=== PATIENT | female | born 1990 | race Caucasian/White ===

== ENCOUNTER 2020-05-17 06:25 | Inpatient (IN) | payer OTHER, SELFPAY ==
[2020-05-17] VITALS (103 sets, daily range): BP systolic 74–161; BP diastolic 40–142; PULSE 60–184; RESP 18; TEMP 36.6–37.3; O2SAT 96–100; BMI 35.6
--- NOTE | 2020-05-17 06:42 | WPDANESEPP ---
Anes - Eval Pre Procedure Procedure: Labor epidural Date/Time: 05/17/20 06:42 Surgeon: Rae Preop Diagnosis: pain during labor Pre Op Diagnosis: Induction of Labor Patient Data Age: 30 Gender: F Height: Weight: Allergies Allergy/AdvReac Type Severity Reaction Status Date / Time sumatriptan [From Imitrex] Allergy Other Verified 04/18/20 14:28 Home Medications Medication Instructions Recorded Confirmed Type prenat.vits,valentina,[id number] 1 tablet PO DAILY 04/18/20 04/18/20 History [ #2] Patient hx anesthesia problems: none Family hx anesthesia problems: none PMFSH Family History Family History (Updated 04/18/20 @ 14:35 by Colette Queen RN) Mother Asthma Bipolar 1 disorder Borderline personality disorder PTSD (post-traumatic stress disorder) Anxiety Depression Degenerative disc disease Grandparent Diabetes mellitus Asthma Neuropathy Father Asthma Depression Anxiety Borderline personality disorder Bipolar 1 disorder Social History Social History Substance use: former Spiritual care concerns: No Exam Day of Procedure 05/17/20 06:42
[2020-05-17 07:09] LABS: Basophils Absolute Auto 0.1 K/mm3 (0.0-0.1); Basophils Percent Auto 0.7 % (0.2-1.2); Eosinophils Absolute Auto 0.2 K/mm3 (0-0.3); Eosinophils Percent Auto 1.3 % (0-4.4); Hematocrit 38.7 % (37.0-47.0); Hemoglobin 12.9 g/dL (12.0-15.0); Immature Granulocyte Absolute 1.03 K/mm3 (0.00-0.031); Immature Granulocyte Percent A 6.3 % (0-0.5); Lymphocytes Absolute Auto 3.65 K/mm3 (0.9-3.2); Lymphocytes Percent Auto 22.2 % (18.3-44.2); Mean Corpuscular HGB Conc 33.3 g/dl (32-36); Mean Corpuscular Hemoglobin 31.5 pg (26-34); Mean Corpuscular Volume 94.4 fl (80-100); Mean Platelet Volume 12.8 fl (7.4-10.4); Monocytes Absolute Auto 1.6 K/mm3 (0.1-0.6); Monocytes Percent Auto 9.9 % (2.6-8.5); Neutrophils Absolute Auto 9.8 K/mm3 (1.3-6.7); Neutrophils Percent Auto 59.6 % (45.5-73.1); Platelet Count Result 135 k/mm3 (150-375); Red Cell Distribution Width 14.3 % (11.5-14.5); White Blood Count 16.4 K/mm3 (4.5-10.0)
[2020-05-17] MEDS: OXYTOCIN 30 UNITS/NS 500 ML 30 UNITS/500 ML BAG IV CONT (07:09)
[2020-05-17] MEDS: LACTATED RINGERS 1,000 ML 125 ML IV CONT ×2 (07:10→09:22)
--- NOTE | 2020-05-17 07:31 | LDADM ---
This patient, Chelle Shah, was admitted to Labor/Delivery/Recovery 107 on 05/17/20 at 06:25. Plans for labor, pain management and were discussed with patient. Patient/family oriented to hospital policies and general routines including ID bracelet, bed and alarms, visiting hours, pain management, procedures, bathroom and other care routines, personal items, smoking policy, room service/diet and guest tray routines, security routines, and visiting hours. Patient/Family are encouraged to report perceived risks to care and to ask questions if they do not understand what they are told or what they should do. See OBIX for further documentation.
--- NOTE | 2020-05-17 08:46 | WPDHPUPDATE1 ---
History and Physical Update Update Date/Time: 05/17/20 08:46AROM - Clear /-2 reassuring status History and Physical has been reviewed, including an updated exam of the patient. There are NO changes in the patient's condition. Risks, benefits, and alternatives have been discussed and questions answered. Patient agrees to proceed with procedure.
[2020-05-17] MEDS: ONDANSETRON INJ 4 MG/2 ML VIAL IV PUSH (10:41)
--- NOTE | 2020-05-17 13:21 | P.PCNOB_ITS ---
OB - Delivery Note Procedure Delivery date: 05/17/20 Intrapartal events: None Induction method: per pitocin protocol Delivery monitor: external FHT and external uterine Route of delivery: Episiotomy description: None Laceration Description: None Estimated blood loss (mL): 194 Anesthesia type: Epidural [place] Baby Date of : 05/17/20 Time of : 13:09 Weeks of gestation at delivery: 41 Infant gender: Male Weight (pounds): 7 Weight (ounces): 12 presentation: vertex position: Right Occiput Anterior Placenta delivery description: Spontaneous cord vessel description: Nuchal Cord and Reduced score one minute: 8 score five minutes: 9 Narrative: Delivery per Pinky ULRICH. Cord gasses collected and handed off to staff.
--- NOTE | 2020-05-17 13:30 | PC.NURSE ---
Attempt to assist with feeding 2x this day. Mother completed feeding independently. Mother is supplementing by choice and states she has some difficulties getting to latch and maintain latch. Discussed calling out for assist for observation of correct latch and techniques to keep awake while feeding and to assist with maintaining latch. Discussed stimulation and milk supply. Offered to assist mother with pumping to stimulate milk supply. Mother states she is unsure if she wishes to pump, she may continue to breast and bottle feed. Mother states she will call out if she wishes to pump or for assist with latching.
[2020-05-17] MEDS: OXYTOCIN 30 UNITS/NS 500 ML 30 UNITS/500 ML BAG 125 UNITS IV CONT (13:45)
[2020-05-17] MEDS: BENZOCAINE 20% AER SPR (*SP) 56 GM CAN 1 SPRAY TOPICAL (15:51)
[2020-05-17] MEDS: WITCH HAZEL 40 PADS 1 PAD TOPICAL (15:51)
--- NOTE | 2020-05-17 16:10 | PC.NURSE ---
PT arrived on unit via wheelchair accompanied by significant other and infant and taken to room 283. PT oriented to room 283 and surroundgin area. PT introductions made and plan of care discussed per post , pain management, breast feeding, daily care activities. Welcome packet reviewed and discussed. PT verbalized understanding of such care.
[2020-05-18 05:29] LABS: Hematocrit 33.9 % (37.0-47.0); Hemoglobin 11.5 g/dL (12.0-15.0)
[2020-05-18 07:55] VITALS: BP 130/68; PULSE 80; RESP 16; TEMP 37.1; O2SAT 100
--- NOTE | 2020-05-18 07:58 | WPDANLDPN2 ---
Anes-Prog Note L&D Date/Time: 05/18/20 07:58 Comfortable throughout: labor and delivery Neuraxial method: epidural Epidural/Spinal procedure site: clean & non-tender Neuro status: Neuro function grossly intact. Cardiovascular status: normal Respiratory status: normal Airway patency: baseline Mental status: baseline Post-Op hydration status: normal Vital Signs: Last Vital Signs Temp 37.3 C 05/17/20 20:00 Pulse 87 05/17/20 20:00 Resp 18 05/17/20 20:00 BP 106/52 L 05/17/20 20:00 Pulse Ox 98 05/17/20 20:00 Pain score (VAS): 0 I/O: Intake & Output 05/17/20 05/17/20 05/18/20 15:59 23:59 07:59 Intake Total 1000 1200 Output Total 147 Balance 1000 1053 Post-procedural complaints: none Patient feedback: Patient satisfied with anesthetic care.
--- NOTE | 2020-05-18 08:00 | PC.NURSE ---
PT introductions made and plan of care discussed per post , pain management, breast feeding, daily care activities. PT verbalized understanding of such care.
--- NOTE | 2020-05-18 08:02 | PM.OBPNVD ---
OB - PN: Subj Subjective Date/time seen: 05/18/20 08:02 Patient comments: no complaints baby status: doing well OB - PN: Obj Data Labs CBC & Chem 7: 05/18/20 04:42 Labs: Laboratory Results - last 24 hr 05/17/20 05/18/20 07:02 04:42 Hgb 11.5 L Hct 33.9 L Blood Type O Positive Antibody Screen Negative OB - PN A/P Plan day: 2 Plan: routine care and discharge home (Repeat platelet and if stable may be discharged to home.) Time Spent With Patient Time: Total time spent is greater than 50% in coordination of care (as documented) at patient's floor/unit and/or counseling patient: Time with patient: less than 15 minutes Review of Systems Review of Systems: All systems reviewed & are unremarkable except as noted in HPI and below Exam Narrative: Exam Narrative: Fundus firm and vaginal flow controlled. No lower ext redness, warmth, or edema. Negative homans. Denies h/a, v/d or e/p. Reflexes normal. Const: General: comfortable Chest: Breast/axilla inspection: normal inspection of the breasts Resp: Effort & Inspection: normal respiratory effort Cardio: Rate: regular rate GI: GI Palp: Yes Soft to palpation Psych: Appearance: grossly normal Affect: normal affect Attitude: cooperative Thought content: Yes Normal thought content present Judgement: Good judgement present (Psych)
[2020-05-18 09:49] LABS: Rapid Plasma Reagin Non-Reactive (NonReactive)
[2020-05-18 09:59] LABS: Immature Platelet Fraction Pct 24.5 % (0.9-11.2); Mean Platelet Volume 13.3 fl (7.4-10.4); Platelet Count Result 150 k/mm3 (150-375)
[2020-05-18 10:30] VITALS: PULSE 80; RESP 16; O2SAT 100
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
[2020-05-18] MEDS: LANOLIN (LANSINOH) 7.5 GM CREAM 1 APPLIC TOPICAL (10:45)
[2020-05-18] MEDS: MULTIVIT/MIN/PREN/FOL AC/IRON TABLET 1 TAB PO (10:45)
[2020-05-18] MEDS: DOCUSATE SODIUM 100 MG CAPSULE PO ×2 (10:45→18:25)
[2020-05-18] MEDS: IBUPROFEN 600 MG TABLET PO ×2 (10:45→15:10)
[2020-05-18] MEDS: ACETAMINOPHEN 325 MG TABLET 650 MG PO (10:45)
--- NOTE | 2020-05-18 13:00 | PC.NURSE ---
Consulted with patient,mother reports she is able to latch infant independently with slight tenderness. Reviewed feeding cues, frequencies, duration of feedings, feeding elimination flow sheet, and signs of adequate intake. Demonstrated stimulation techniques to wake infant for feeding. Assisted with infant to breast. Reviewed positioning/alignment in cross cradle, holding breast in U hold and guided asymmetrical latch on. Several attempts before infant was able to latch correctly. Mother reports she feels this latch is deeper than previous and has less tenderness. Infant nursed eagerly with steady draws and frequent swallowing noted, followed with pausing. Reviewed signs of a correct latch, effective nursing and suck swallow ratio. was able to maintain latch without discomfort to mother. Nipple care reviewed. Suggested mother stimulate infant while feeding to keep nursing effectively for increased intake and to assist with maintaining deep latch. Demonstrated how to adjust latch more deeply while feeding.
[2020-05-18] MEDS: TETANUS,DIPHTHERIA,AC PERTUSSIS ADULT (0.5 ML) BOOSTRIX IM (15:03)
[2020-05-18 18:50] VITALS: BP 111/69; PULSE 82; RESP 16; TEMP 37.1
[2020-05-19] MEDS: ACETAMINOPHEN 325 MG TABLET 650 MG PO (06:55)
[2020-05-19] MEDS: IBUPROFEN 600 MG TABLET PO (06:55)
[2020-05-19] MEDS: MULTIVIT/MIN/PREN/FOL AC/IRON TABLET 1 TAB PO (06:56)
--- NOTE | 2020-05-19 07:43 | P.DS_ITS ---
DS: Admitting Diagnosis Admitting Diagnosis Admitting Diagnosis: Induction of Labor DS: Discharge Diagnosis Discharge Diagnosis (1) Term delivered: Code(s): O80 - Encounter for full-term uncomplicated delivery Status: Acute OB - DS: Summary OB Procedures : None OB Procedures Intrapartum: Spontaneous Vag Delivery OB Procedures: : None Peripartum Data Delivery Method: Natural Vaginal Time Spent with Patient Time attestation: Total time spent providing and/or coordinating discharge services: DS: Data Data Completed and Pending Labs on day of discharge: Labs from last 24 hours 05/18/20 05/17/20 04:36 07:02 Plt Count 150 MPV 13.3 H % Immature Plt Fraction 24.5 H RPR Non-reactive Discharge Plan Discharge Discharging Clinician: Nancy Mcbride Patient Disposition: Home, Self-Care Activity: pelvic rest Diet: regular Patient Instructions: Antibiotic Form Stand Alone Forms: General Discharge Information Follow-up/Referrals: Nancy Mcbride MD [Physician] - Discharge Medications: Continued #2 Tablet 1 tablet PO DAILY RF: 0 Date of admission: 05/17/20 06:25 Primary Care Provider: PHYSICIAN,[facility] Admitting Provider: Nancy Mcbride Attending physician on admission: Nancy Mcbride Condition: Stable
--- NOTE | 2020-05-19 07:43 | PM.OBPNVD ---
OB - PN: Subj Subjective Date/time seen: 05/19/20 07:43 Patient comments: no complaints, pain well controlled and tolerating diet OB - PN: Obj Data Labs CBC & Chem 7: 05/18/20 04:42 Labs: Laboratory Results - last 24 hr 05/17/20 05/18/20 07:02 04:36 Plt Count 150 MPV 13.3 H % Immature Plt Fraction 24.5 H RPR Non-reactive OB - PN A/P Plan day: 2 Plan: routine care and discharge home Time Spent With Patient Time: Total time spent is greater than 50% in coordination of care (as documented) at patient's floor/unit and/or counseling patient: Exam Const: General: comfortable and no acute distress Resp: Effort & Inspection: normal respiratory effort Auscultation: no rales, no rhonchi and no wheezes Cardio: Rate: regular rate Heart sounds: no click, no murmurs and no rubs GI: GI Palp: Yes Soft to palpation and No Tenderness to palpation present (GI) Auscultation: normal bowel sounds Extrem: General: normal to inspection, no pedal edema and no calf tenderness
[2020-05-19 08:45] VITALS: BP 114/64; PULSE 83; RESP 18; TEMP 36.8; O2SAT 99
--- NOTE | 2020-05-19 09:20 | PC.NURSE ---
Observed mother is able to independently latch with appropriate positioning/alignment. She denies any nipple discomfort, is feeding as required and waking infant to feed if needed. has had at least 8 effective feedings in the past 24 hours, and is currently meeting outcomes for weight, output, jaundice and feeding frequencies. Mother states she feels confident to continue effective at home. Reviewed transition to breast milk, signs of adequate intake, and engorgement/relief. Instructed to call ICP if intake/output less than required. Reviewed regular medications mother is taking. Information provided per Ingrid. Reviewed community resources on the [facility] website and in the Mom/Baby guide. Information on outpatient services provided. Mother has no further questions at this time.
[2020-05-22 08:17] VITALS: BP 114/66; PULSE 79; RESP 14; TEMP 37.3; O2SAT 99
== END 2020-05-19 13:35 | disposition home or self-care (01) | DRG 560 ==
LOC: ANHLDR 06:28 → ANHOB2 16:14
PROVIDERS: Advanced Practice Midwife; Admitting Provider Obstetrics & Gynecology; Visit Provider Obstetrics & Gynecology
DX: O69.81X0 Labor and delivery complicated by cord around neck, without compression, not applicable or unspecified (principal); Z3A.41 41 weeks gestation of pregnancy; Z37.0 Single live birth; Z23 Encounter for immunization
CPT/HCPCS: 36415; 85014; 85018; 85025; 85049; 85055; 86592; 86850; 86900; 86901; 90471; 90653; 90715; A9270; G0008; J2405; J2590; J2795; J7120

== ENCOUNTER 2021-01-28 15:29 | Emergency (ER) | payer OTHER, SELFPAY ==
--- NOTE | ~2021-01-28 | XR_ITS ---
EXAMINATION: XR foot RT min 3V DATE: 01/28/2021 17:37 INDICATION: Right foot pain TECHNIQUE: Dorsoplantar, lateral, and 2 oblique views of the right foot were obtained. COMPARISON: None. FINDINGS: There is internal stabilization hardware in the distal tibia and fibula. There is no acute fracture, dislocation, or subluxation. The soft tissues are unremarkable. IMPRESSION: 1. No acute osseous abnormality. Reviewed, dictated and finalized at location A.
[2021-01-28 15:49] VITALS: BP 130/91; PULSE 86; RESP 16; TEMP 36.1; O2SAT 99
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
== END 2021-01-28 18:35 | disposition home or self-care (01) ==
PROVIDERS: Emergency Provider Emergency Medicine
DX: M79.671 Pain in right foot (principal)
CPT/HCPCS: 73630; 99283